=== PATIENT | male | born 1970 | race Caucasian/White ===

== ENCOUNTER 2020-06-03 05:22 | Emergency (ER) | payer OTHER, SELFPAY ==
[2020-06-03 05:46] VITALS: PULSE 82; RESP 15; TEMP 37; O2SAT 97; BMI 20.2
[2020-06-03 05:56] VITALS: BP 140/84; PULSE 82; RESP 15; TEMP 37; O2SAT 97
--- NOTE | 2020-06-03 06:12 | ED_ITS ---
HPI - General Adult General Chief complaint: General Medical Stated complaint: TICK BITE Time Seen by Provider: 06/03/20 06:12 Source: patient Mode of arrival: ambulatory Limitations: no limitations History of Present Illness HPI narrative: 50-year-old male who reports tick to the right upper back for 3 days and the inability to completely remove it. Otherwise denies any fevers, chills, muscle or joint aches. Related Data Home Medications Medication Instructions Recorded Confirmed omeprazole 20 mg PO DAILY 06/03/20 06/03/20 Previous Rx's Medication Instructions Recorded doxycycline hyclate 100 mg PO BID 21 Days #42 tab 06/03/20 omeprazole 40 mg PO DAILY 30 Days #30 cap 06/03/20 Allergies Allergy/AdvReac Type Severity Reaction Status Date / Time No Known Allergies Allergy Verified 06/03/20 06:22 Review of Systems Review of Systems: Pertinent positives and negatives as stated in HPI 10 point review of systems is otherwise negative PMFSH Past Medical History Source: nursing notes reviewed Medical History ADHD Gastroesophageal reflux disease Heart murmur Herniated disc Rheumatoid arthritis Social History Social History Smoking Status: Current every day smoker Use of substances other than those prescribed or required for medical reasons: Yes Substance Use Type: Marijuana Advance Directives: No Physical Exam Vital Signs: Vital Signs: Vital Signs Temp Pulse Resp BP Pulse Ox 06/03/20 05:56 98.6 F 82 15 140/84 H 97 06/03/20 05:46 98.6 F 82 15 97 Body Mass Index 20.2 VITAL SIGNS: Reviewed. GENERAL: Well developed, well nourished, in no acute distress. HEAD: Normocephalic/atraumatic, EYES: PERRLA, EOMI intact without pain, no nystagmus/pallor/icterus noted EARS: Ext canals without abnormality, TMs non-bulging and non-erythematous NOSE: Nares patent bilateral OROPHARYNX: no oral lesions noted, posterior pharynx clear and non-erythematous without noted tonsillar enlargement/erythema/exudates NECK: Supple, no adenopathy LUNGS: Normal breath sounds. No adventitious sounds or accessory muscle use. SpO2<97> CARDIOVASCULAR: Regular rate and rhythm without noted murmurs, no JVD or lower extremity edema. ABDOMEN: Soft, non-tender, non-distended with bowel sounds. No rigidity. No guarding. No palpable masses or hernias noted MUSCULOSKELETAL: No tenderness, deformities, or effusions noted on gross inspection. BACK: area consistent with tick imbedded and the upper right lateral back with surrounding induration and erythema but no fluctuance. EXTREMITIES: No cyanosis, clubbing or edema. SKIN: Inspection of the skin reveals no rashes, ulcerations, jaundice, pallor, or petechiae. NEUROLOGIC: Alert and oriented x 4. Strength and sensation to light touch were grossly intact x 4. Course Course Course Narrative: This is a 50-year-old male with history and clinical presentation consistent with tick bite and still imbedded in the skin and was successfully removed at bedside and will be discharged on a course of dox ycycline. Discharge Plan Discharge Clinical Impression: Tick bite Qualifiers: Encounter type: initial encounter Qualified Code(s): W57.XXXA - Bitten or stung by nonvenomous insect and other nonvenomous arthropods, initial encounter Patient Disposition: Home, Self-Care Prescriptions: New doxycycline hyclate 100 mg tablet 100 mg PO BID 21 Days Qty: 42 RF: 0 omeprazole 40 mg capsule,delayed release(DR/EC) 40 mg PO DAILY 30 Days Qty: 30 RF: 0 No Action omeprazole 20 mg Capsule,Delayed Release(Dr/Ec) 20 mg PO DAILY RF: 0 Referrals: Physician,Unknown [Primary Care Provider] - 2 days
== END 2020-06-03 06:47 | disposition home or self-care (01) ==
PROVIDERS: Emergency Provider Student in an Organized Health Care Education/Training Program
DX: S20.461A Insect bite (nonvenomous) of right back wall of thorax, initial encounter (principal); X58.XXXA Exposure to other specified factors, initial encounter; Y93.9 Activity, unspecified; Y92.9 Unspecified place or not applicable; Y99.9 Unspecified external cause status; F17.200 Nicotine dependence, unspecified, uncomplicated; F12.90 Cannabis use, unspecified, uncomplicated
CPT/HCPCS: 99283; 99284

== ENCOUNTER 2022-05-18 16:15 | Emergency (ER) | payer OTHER, SELFPAY | END 2022-05-18 20:43 | disposition left against medical advice (07) | PROVIDERS: Emergency Provider Emergency Medicine | DX: Z04.1 Encounter for examination and observation following transport accident (principal) ==

== ENCOUNTER 2022-05-23 11:50 | Emergency (ER) | payer OTHER, SELFPAY ==
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
[2022-05-23 12:05] VITALS: BP 169/94; PULSE 65; RESP 16; TEMP 36.1; O2SAT 97; BMI 22.3
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
[2022-05-23] MEDS: Lidocaine 4 % Patch ADH..PATCH 1 PATCH TRANSDERMA (13:42)
[2022-05-23] MEDS: oxyCODONE HCl Immed Release 5 MG TABLET PO (13:42)
[2022-05-23] MEDS: Ketorolac Tromethamine 30 MG/ML VIAL IM (13:42)
[2022-05-23 14:24] LABS: Basophils Absolute Auto 0.1 X10*3/uL (0.0-0.2); Basophils Percent Auto 1.3 % (0-2); Eosinophils Absolute Auto 0.2 X10*3/uL (0.0-0.4); Eosinophils Percent Auto 2.5 % (0-4); Hemoglobin 16.6 g/dl (14.0-18.0); Imm Gran Abs Auto 0.03 X10*3/uL (0.00-0.03); Imm Gran Pct Auto 0.3 % (0.0-0.4); Lymphocytes Absolute Auto 1.9 X10*3/uL (1.2-4.9); Lymphocytes Percent Auto 21.5 % (20-40); MANUAL DIFF FLAG SCAN; Mean Corpuscular HGB Conc 33.9 g/dl (31.0-36.0); Mean Corpuscular Hemoglobin 34.1 pg (27.0-33.0); Mean Corpuscular Volume 100.6 fL (80.0-98.0); Mean Platelet Volume 13.3 fL (9.4-12.4); Monocytes Absolute Auto 0.9 X10*3/uL (0.1-1.2); Monocytes Percent Auto 10.4 % (2-11); Neutrophils Absolute Auto 5.5 x10*3/uL (2.0-8.3); PLT CLUMP 1; Red Blood Count 4.87 X10*6/uL (4.60-5.80); Red Cell Distribution Width 12.9 % (11.0-16.0); SCAN SMEAR FLAG 1
[2022-05-23 14:45] LABS: Alanine Aminotransferase 24 U/L (0-40); Albumin Level 4.4 g/dL (3.5-5.0); Alkaline Phosphatase 67 U/L (39-117); Anion Gap 18 (12-20); Aspartate Amino Transferase 34 U/L (5-37); Bilirubin Direct 0.3 mg/dL (0.0-0.5); Bilirubin Total 0.7 mg/dL (0.0-1.0); Blood Urea Nitrogen 9 mg/dL (9-16); Calcium 9.3 mg/dL (8.4-10.2); Carbon Dioxide 26 mmol/L (22-29); Chloride 102 mmol/L (96-108); Creatinine Clr Calc Pharmacy 91.2; Estimated Glomerular Filt Rate > 60; Glucose Random 93 mg/dL (60-115); Magnesium 2.3 mg/dL (1.6-2.6); Potassium 5.1 mmol/L (3.3-5.1); Sodium 141 mmol/L (135-145); Total Protein 7.1 g/dL (6.5-8.0)
[2022-05-23 14:51] LABS: White Blood Count 8.7 X10*3/uL (4.8-10.8)
[2022-05-23 14:52] LABS: SLIDE REVIEW VERIFIED
[2022-05-23] MEDS: iohexoL 350 MG/ML 75 ML INFUS..BTL 85 ML IV (15:06)
== END 2022-05-23 16:44 | disposition home or self-care (01) ==
PROVIDERS: Physician Assistant; Emergency Provider Emergency Medicine
DX: S22.31XA Fracture of one rib, right side, initial encounter for closed fracture (principal); M54.6 Pain in thoracic spine; R10.2 Pelvic and perineal pain; R07.81 Pleurodynia; V23.41XA Electric (assisted) bicycle driver injured in collision with car, pick-up truck or van in traffic accident, initial encounter; Y93.9 Activity, unspecified; Y92.410 Unspecified street and highway as the place of occurrence of the external cause; Y99.9 Unspecified external cause status; Z79.899 Other long term (current) drug therapy
CPT/HCPCS: 36415; 71101; 71260; 74177; 80048; 80076; 83735; 85025; 96372; 99284; J1885; Q9967

== ENCOUNTER 2024-08-26 08:56 | Emergency (ER) | payer OTHER, SELFPAY ==
--- NOTE | ~2024-08-26 | XR_ITS ---
EXAMINATION: XR ANKLE, LEFT XR FOOT, LEFT CLINICAL INFORMATION: injury , pain COMPARISON: None available. TECHNIQUE: AP, lateral, and mortise views of the left ankle. FINDINGS: On the lateral projection, there is a vertically oriented, likely comminuted mid calcaneal fracture, with increase of Boehler's angle. This appears extend into the posterior facet of the subtalar joints. No additional fractures identified. The ankle is intact, with intact mortise and normal talar dome. The forefoot and midfoot appear normal and intact. There is soft tissue swelling of the heel. XR/XR foot LT 2V IMPRESSION: Comminuted mildly depressed calcaneal fracture. Electronically signed by: Maldonado Robins MD 08/26/2024 09:49 AM [facility]
--- NOTE | ~2024-08-26 | XR_ITS ---
EXAMINATION: XR ANKLE, LEFT XR FOOT, LEFT CLINICAL INFORMATION: injury , pain COMPARISON: None available. TECHNIQUE: AP, lateral, and mortise views of the left ankle. FINDINGS: On the lateral projection, there is a vertically oriented, likely comminuted mid calcaneal fracture, with increase of Boehler's angle. This appears extend into the posterior facet of the subtalar joints. No additional fractures identified. The ankle is intact, with intact mortise and normal talar dome. The forefoot and midfoot appear normal and intact. There is soft tissue swelling of the heel. XR/XR ankle LT 2V IMPRESSION: Comminuted mildly depressed calcaneal fracture. Electronically signed by: Maldonado Robins MD 08/26/2024 09:49 AM [facility]
--- NOTE | ~2024-08-26 | CT_ITS ---
EXAMINATION: CT LUMBAR SPINE WITHOUT CONTRAST CLINICAL INFORMATION: Calcaneal fracture, back pain, rule out fracture. COMPARISON: None available. TECHNIQUE: This CT examination was performed using dose optimization techniques as appropriate, variously including the following: *Automated exposure control *Adjustment of mA and/or kV according to patient size (this includes techniques or standardized protocols for targeted exams where dose is matched to indication/reason for exam; i.e. extremities or head) *Use of iterative reconstruction technique FINDINGS: There is a minimal levoconvex scoliosis. There is a normal lumbar lordosis. There is no fracture, compression deformity, or suspicious focal bone lesion. There is no pars defect or evidence of spondylolysis. There is no evidence of traumatic subluxation. There is minimal degenerative retrolisthesis L3 on L4. Severe degenerative disc disease L5-S1 with disc vacuum phenomenon and spurring. Mild associated facet arthropathy at this level. There is mild disc degeneration at the other levels, left lateral flowing disc osteophytes at L1-L4. Normal facet alignment. There is no evidence of central canal stenosis or large disc herniation. There are disc bulges present at L3-4, L4-5, and L5-S1, poorly characterized on CT. There is moderate to severe neural foraminal stenosis present on the left at L4-5 and L5-S1, and on the right at L5-S1. Moderate right neural foraminal stenosis at L4-5. The imaged sacrum is intact as are the imaged SI joints. Imaged soft tissues demonstrate moderate calcification of the aorta and iliac vessels without aneurysm. No paraspinal or paravertebral soft tissue abnormalities. CT/CT lumbar spine wo IV con IMPRESSION: 1. There is no acute lumbar spine fracture or traumatic malalignment. 2. There is no evidence of spondylolysis. 3. There are lwwj-on-oqushlhe degenerative changes as discussed without evidence of significant canal stenosis. There is significant neural foraminal stenosis at L4-5 and L5-S1 as above. Electronically signed by: Maldonado Robins MD 08/26/2024 12:35 PM [facility] [place]
--- NOTE | ~2024-08-26 | CT_ITS ---
EXAMINATION: CT LEFT FOOT WITHOUT CONTRAST CLINICAL INFORMATION: Calcaneal fracture. Pain. COMPARISON: Plain films of the left foot earlier same day. TECHNIQUE: Spiral CT examination of the left foot was performed in axial plane without IV contrast. Sagittal, coronal, and thin section axial reformatted images were constructed from the axial data set. This CT examination was performed using dose optimization techniques as appropriate, variously including the following: *Automated exposure control *Adjustment of mA and/or kV according to patient size (this includes techniques or standardized protocols for targeted exams where dose is matched to indication/reason for exam; i.e. extremities or head) *Use of iterative reconstruction technique FINDINGS: There is redemonstration of a heavily comminuted calcaneus fracture, with flattening of the calcaneus, and fracture lines extending into both the middle and posterior subtalar facets. Significant articular step off of the posterior facet. No step-off involving the middle facet. Boehler's angle is significantly increased. Fracture lines involve the sustentaculum kurtis. Fracture line extends into the calcaneocuboid joint. No articular step-off. Posteriorly, fracture line extends into the Achilles enthesis. The talus and talar dome, as well as anterior process of the talus are intact. The distal tibia and fibula are intact. The ankle mortise is intact. The remaining tarsal bones including the navicular are intact without fracture. The tarsal metatarsal joints are normally aligned. The Lisfranc interval is normal. Metatarsals and phalanges are intact. No dislocations. Soft tissue swelling and hemorrhage surrounds the calcaneus. CT/CT foot LT wo IV con IMPRESSION: 1. Heavily comminuted calcaneal fracture with fracture lines involving the middle and posterior subtalar facets, anterior calcaneal process, sustentaculum kurtis and extending into the Achilles tendon enthesis. There is flattening of the calcaneus. See above for details. 2. No additional fractures, dislocations, or suspicious bone lesions. 3. Soft tissue swelling and hemorrhage surrounds the fractured calcaneus. Electronically signed by: Maldonado Robins MD 08/26/2024 02:39 PM [facility]
--- NOTE | ~2024-08-26 | XR_ITS ---
EXAMINATION: XR KNEE, LEFT CLINICAL INFORMATION: calcaneous fx, pain COMPARISON: None available. TECHNIQUE: Four views of the left knee. FINDINGS: No acute cortical disruption or malalignment. No lytic or blastic lesions. No suprapatellar bursa joint effusion. Osteopenia versus osteoporosis. XR/XR knee LT 3V IMPRESSION: No acute fracture or dislocation. Electronically signed by: Joselito Stone MD 08/26/2024 12:14 PM [facility]
--- NOTE | ~2024-08-26 | XR_ITS ---
EXAMINATION: XR PELVIS CLINICAL INFORMATION: calcaneous fx, pain COMPARISON: None available. TECHNIQUE: AP view of the pelvis. FINDINGS: No acute cortical disruption or malalignment. Sclerotic irregular articular surface and the superior margin of the acetabula, bilaterally. Asymmetric joint space narrowing involving both coxofemoral joint. Subchondral cyst formation superior right femoral head. Bony pelvis is intact. Spondylosis L5-S1. XR/XR pelvis 1-2V IMPRESSION: Osteoarthrosis, both coxofemoral joints. No acute fracture. Electronically signed by: Joselito Stone MD 08/26/2024 12:13 PM [facility]
[2024-08-26 08:59] VITALS: BP 148/99; PULSE 74; RESP 18; TEMP 36.7; O2SAT 100; BMI 21.6
[2024-08-26] MEDS: Ibuprofen 600 MG TABLET PO (09:04)
--- NOTE | 2024-08-26 09:55 | ED_ITS ---
HPI - General Adult General Chief complaint: Extremity Injury, Lower Stated complaint: ? R Ankle Fx Time Seen by Provider: 08/26/24 09:55 Source: patient Mode of arrival: wheelchair Limitations: no limitations History of Present Illness ED Provider: Brea Tejada PA-C HPI narrative: Patient is a 54 year old assigned male at with a history of tobacco use presenting to the emergency department today with left heel pain. Patient states that he was running and stepped into a hole - injuring his left heel/foot. Patient denies any head strike or loss of consciousness with this incident, dizziness, lightheadedness, abdominal pain, nausea, vomiting, fever, chills, blurry vision, double vision, loss of vision, chest pain, difficulty breathing, shortness of breath, back pain, night sweats, pain with urination, increased urinary frequency, increased urinary urgency, blood in his urine or stool, syncope or a near syncopal episode, bowel incontinence, bladder incontinence, or any other complaints at this time. Severity: moderate Severity scale (1-10): 4 Relieving factors: immobilization Exacerbating factors: movement Associated symptoms: denies other symptoms Treatments prior to arrival: none Related Data Previous Rx's ?Medication ?Instructions ?Recorded doxycycline hyclate 100 mg tablet 100 mg PO BID 21 days #42 tabs 06/03/20 hydrocodone 5 mg-acetaminophen 325 1 tab PO Q6H PRN severe pain 05/23/22 mg tablet (scale score 7-10) #10 tabs ibuprofen 600 mg tablet 600 mg PO Q8H PRN pain #20 tabs 05/23/22 lidocaine 5 % topical patch 1 patch topical DAILY #15 ea 05/23/22 cephalexin 500 mg capsule 500 mg PO BID 7 days #14 caps 02/06/23 tramadol 50 mg tablet 50 mg PO Q8H PRN pain 3 days #9 02/06/23 tabs oxycodone 5 mg tablet 5 mg PO Q8H PRN pain #3 tabs 08/26/24 Allergies Allergy/AdvReac Type Severity Reaction Status Date / Time No Known Allergies Allergy Verified 08/26/24 09:00 Review of Systems Constitutional: Constitutional: Reports no additional constitutional complaints, Denies chills, Denies fever(s) and Denies night sweats Eyes: Eyes: Reports no additional eye complaints, Denies blurry vision, Denies change in vision, Denies diplopia, Denies eye discharge, Denies loss of vision and Denies eye pain ENT: Denies dizziness Cardiovascular: Cardiovascular: Reports no additional cardiovascular complaints, Denies chest pain, Denies lightheadedness, Denies Loss of Consciousness and Denies dyspnea Respiratory: Respiratory: Reports no additional respiratory complaints and Denies dyspnea Gastrointestinal: Gastrointestinal: Reports no additional gastrointestinal complaints, Denies abdominal pain, Denies melena, Denies hematochezia, Denies change in bowel habits and Denies change in stool character Genitourinary: Genitourinary: Reports no additional male genitourinary complaints, Denies hematuria, Denies oliguria, Denies difficulty urinating, Denies dysuria, Denies urinary frequency, Denies urinary hesitancy, Denies urinary incontinence and Denies urinary urgency Musculoskeletal: Musculoskeletal: Reports no additional musculoskeletal complaints, Denies numbness and Denies tingling Comments: left ankle / heel pain Neurologic: Denies dizziness, Denies loss of vision, Denies numbness and Denies tingling Psychiatric: Psychiatric: Reports no additional psychiatric complaints Endocrine: Endocrine: Reports no additional endocrine complaints Hematologic/Lymphatic: Hematologic/Lymphatic: Reports no additional hematologic/lymphatic complaints Allergic/Immunologic: Allergic/Immunologic: Reports no additional allergic/immunologic complaints PMFSH Past Medical History Attestation statement: The following information was validated with the patient. Source: old records reviewed and nursing notes reviewed Medical History Herniated disc Heart murmur ADHD Gastroesophageal reflux disease Rheumatoid arthritis Social History Social History Patient Tobacco Use Status: Current everyday Tobacco user Substance Use Type: Marijuana Advance Directives: No Advance Directives Information Provided: Yes Do you have a plan to hurt others: No Plan Physical Exam ED Vital Signs: Vital Signs - 24 hr 08/26/24 08:59 08/26/24 14:27 Temperature 98.1 F 98.1 F Pulse Rate 74 74 Respiratory Rate 18 18 Blood Pressure 148/99 H 148/99 H Pulse Oximetry 100 100 Oxygen Delivery Method Room Air Room Air BMI result Body Mass Index 21.6 Const General: cooperative, no acute distress, alert and awake Nutritional Appearance: well nourished Orientation/consciousness: patient oriented x3 Limitations: no limitations [facility] Head: Yes normal to inspection and Yes atraumatic Ears: hearing grossly normal bilaterally and external ears normal General nose exam: Normal external nose present, no nasal discharge noted and no epistaxis Face and sinus: Yes normal facial exam, No abrasion and No laceration Mouth: Normal oral and palatal mucosa present, no drooling and no muffled voice Eyes General: appearance normal, both eyes and all related structures Periorbital: periorbital findings normal Eyelids: Yes eyelids normal Conjunctivae: conjunctivae normal Pupils: Equal, round and reactive pupils present EOM: EOMs intact bilaterally Neck Neck: Yes normal visual inspection, Yes full ROM and Yes no lymphadenopathy Chest Chest palpation & inspection: normal inspection of the chest Resp Effort & Inspection: normal respiratory effort and able to speak in complete sentences GI Inspection: Yes normal to inspection Neuro General: patient oriented x3 and moves all extremities Cranial nerves: Yes Equal, round and reactive pupils present Cognition (Neuro): normal cognition Extrem Other: minimal swelling present to the left ankle pain with palpation of the left heel / foot / ankle General: Yes capillary refill normal Psych Appearance: grossly normal Mental Status: mental status grossly normal Affect: normal affect Attitude: cooperative Thought process: Normal thought process present Thought content: Normal thought content present Insight: Good insight present (Psych) Medications Administered Discontinued Medications Generic Name Dose Route Start Last Admin Trade Name Raymundo PRN Reason Stop Dose Admin Ibuprofen 600 mg 08/26/24 09:03 08/26/24 09:04 Ibuprofen 600 Mg Tablet PO 08/26/24 09:04 600 mg ONCE ONE Administration Morphine Sulfate 4 mg 08/26/24 11:26 08/26/24 11:38 Morphine Sulfate 4 Mg/Ml Cartridge IM 08/26/24 11:27 4 mg ONCE ONE Administration Protocol Naloxone HCl 8 mg 08/26/24 13:32 08/26/24 13:47 Naloxone Hcl Nasal Take Home 4 Mg [place] NOSTRILALT 08/26/24 13:33 8 mg ONCE ONE Administration Ondansetron HCl 4 mg 08/26/24 11:26 08/26/24 11:37 Ondansetron Odt 4 Mg Tab.Rapdis TRANSLINGU 08/26/24 11:27 4 mg ONCE ONE Administration Procedures Orthopedic Splinting/Casting Injury #1: Side: left Lower Extremity Immobilizer: posterior splint Other Orthopedic Equipment: crutches Medical Decision Making Medical Decision Making [facility] Narrative: Patient is a 54 year old assigned male at with no reported medical history presenting to the emergency department today with left ankle and heel pain. Patient's physical exam was as noted in the physical exam portion of this note. Patient's left ankle and foot x-rays showed a comminuted and mildly depressed calcaneal fracture. Patient's lumbar CT showed no acute process. Patient's left knee x-ray showed no acute process. Patient's pelvis x-ray showed no acute process. I explained my physical exam findings as well as all test results to the patient. I answered all questions asked by the patient. I spoke to the orthopedic team who requested I obtain a CT scan and discharge the patient appropriately splinted with outpatient follow up. Patient's left heel was placed in a posterior short leg splint with a stirrup - without incident. Patient's PMS was intact prior to and after splint placement. Patient was given crutches with crutch instructions. I stressed the importance of the patient taking his medication as directed (either prescribed or as the over the counter packaging recommends). I stressed the importance of the patient following up with his primary care provider and an orthopedic provider. I stressed the importance of the patient returning to the emergency department immediately if his symptoms were to worsen or if he were to develop any dizziness, shortness of breath, difficulty breathing, chest pain, blurry vision, loss of vision, nausea, vomiting, abdominal pain, fever, chills, back pain, or any other complaints. Patient verbalized agreement and understanding with this treatment plan and discharge. Differential Diagnosis Differential Diagnoses: The differential diagnosis associated with the presentation includes Left calcaneous fracture Admission/Observation Consideration of admission/observation: Escalation of care including admission/observation considered Patient would have been admitted to the hospital had his work up had any findings where hospital admission was appropriate and his clinical presentation warranted hospital admission. Consult Healthcare Provider Management of the patient was discussed with: Field Underwriter (spoke to the orthopedic team as noted in the MDM Rationale portion of this note. ) Independent Interpretation I performed an independent interpretation of an: Plain X-Ray and CT Scan Interpretation: My interpretation is in agreement with the radiologist's impression of these imaging studies. EXAMINATION: XR ANKLE, LEFT XR FOOT, LEFT CLINICAL INFORMATION: injury , pain COMPARISON: None available. TECHNIQUE: AP, lateral, and mortise views of the left ankle. FINDINGS: On the lateral projection, there is a vertically oriented, likely comminuted mid calcaneal fracture, with increase of Boehler's angle. This appears extend into the posterior facet of the subtalar joints. No additional fractures identified. The ankle is intact, with intact mortise and normal talar dome. The forefoot and midfoot appear normal and intact. There is soft tissue swelling of the heel. XR/XR ankle LT 2V IMPRESSION: Comminuted mildly depressed calcaneal fracture. Electronically signed by: Maldonado Robins MD 08/26/2024 09:49 AM EST RP Dictated By: Maldonado Robins MD Signed By: Electronically signed by Maldonado Robins MD 08/26/24 0949 EXAMINATION: XR PELVIS CLINICAL INFORMATION: calcaneous fx, pain COMPARISON: None available. TECHNIQUE: AP view of the pelvis. FINDINGS: No acute cortical disruption or malalignment. Sclerotic irregular articular surface and the superior margin of the acetabula, bilaterally. Asymmetric joint space narrowing involving both coxofemoral joint. Subchondral cyst formation superior right femoral head. Bony pelvis is intact. Spondylosis L5-S1. XR/XR pelvis 1-2V IMPRESSION: Osteoarthrosis, both coxofemoral joints. No acute fracture. Electronically signed by: Joselito Stone MD 08/26/2024 12:13 PM EST RP Dictated By: Joselito Garvey MD Signed By: Electronically signed by Joselito Burk MD 08/26/24 1213 EXAMINATION: XR KNEE, LEFT CLINICAL INFORMATION: calcaneous fx, pain COMPARISON: None available. TECHNIQUE: Four views of the left knee. FINDINGS: No acute cortical disruption or malalignment. No lytic or blastic lesions. No suprapatellar bursa joint effusion. Osteopenia versus osteoporosis. XR/XR knee LT 3V IMPRESSION: No acute fracture or dislocation. Electronically signed by: Joselito Stone MD 08/26/2024 12:14 PM [facility] Dictated By: Joselito Garvey MD Signed By: Electronically signed by Joselito Burk MD 08/26/24 1214 L Report Number: [id number]: Total DLP = 327.00 mGy-cm EXAMINATION: CT LUMBAR SPINE WITHOUT CONTRAST CLINICAL INFORMATION: Calcaneal fracture, back pain, rule out fracture. COMPARISON: None available. TECHNIQUE: This CT examination was performed using dose optimization techniques as appropriate, variously including the following: *Automated exposure control *Adjustment of mA and/or kV according to patient size (this includes techniques or standardized protocols for targeted exams where dose is matched to indication/reason for exam; i.e. extremities or head) *Use of iterative reconstruction technique FINDINGS: There is a minimal levoconvex scoliosis. There is a normal lumbar lordosis. There is no fracture, compression deformity, or suspicious focal bone lesion. There is no pars defect or evidence of spondylolysis. There is no evidence of traumatic subluxation. There is minimal degenerative retrolisthesis L3 on L4. Severe degenerative disc disease L5-S1 with disc vacuum phenomenon and spurring. Mild associated facet arthropathy at this level. There is mild disc degeneration at the other levels, left lateral flowing disc osteophytes at L1-L4. Normal facet alignment. There is no evidence of central canal stenosis or large disc herniation. There are disc bulges present at L3-4, L4-5, and L5-S1, poorly characterized on CT. There is moderate to severe neural foraminal stenosis present on the left at L4- 5 and L5-S1, and on the right at L5-S1. Moderate right neural foraminal stenosis at L4-5. The imaged sacrum is intact as are the imaged SI joints. Imaged soft tissues demonstrate moderate calcification of the aorta and iliac vessels without aneurysm. No paraspinal or paravertebral soft tissue abnormalities. CT/CT lumbar spine wo IV con IMPRESSION: 1. There is no acute lumbar spine fracture or traumatic malalignment. 2. There is no evidence of spondylolysis. 3. There are djht-[id number]-[id number] degenerative changes as discussed without evidence of significant canal stenosis. There is significant neural foraminal stenosis at L4-5 and L5-S1 as above. Electronically signed by: Maldonado Robins MD 08/26/2024 12:35 PM [facility] Dictated By: Maldonado Robins MD Signed By: Electronically signed by Maldonado Robins MD 08/26/24 1235 Report Number: [id number]: Total DLP = 155.00 mGy-cm EXAMINATION: CT LEFT FOOT WITHOUT CONTRAST CLINICAL INFORMATION: Calcaneal fracture. Pain. COMPARISON: Plain films of the left foot earlier same day. TECHNIQUE: Spiral CT examination of the left foot was performed in axial plane without IV contrast. Sagittal, coronal, and thin section axial reformatted images were constructed from the axial data set. This CT examination was performed using dose optimization techniques as appropriate, variously including the following: *Automated exposure control *Adjustment of mA and/or kV according to patient size (this includes techniques or standardized protocols for targeted exams where dose is matched to indication/reason for exam; i.e. extremities or head) *Use of iterative reconstruction technique FINDINGS: There is redemonstration of a heavily comminuted calcaneus fracture, with flattening of the calcaneus, and fracture lines extending into both the middle and posterior subtalar facets. Significant articular step off of the posterior facet. No step-off involving the middle facet. Boehler's angle is significantly increased. Fracture lines involve the sustentaculum kurtis. Fracture line extends into the calcaneocuboid joint. No articular step-off. Posteriorly, fracture line extends into the Achilles enthesis. The talus and talar dome, as well as anterior process of the talus are intact. The distal tibia and fibula are intact. The ankle mortise is intact. The remaining tarsal bones including the navicular are intact without fracture. The tarsal metatarsal joints are normally aligned. The Lisfranc interval is normal. Metatarsals and phalanges are intact. No dislocations. Soft tissue swelling and hemorrhage surrounds the calcaneus. CT/CT foot LT wo IV con IMPRESSION: 1. Heavily comminuted calcaneal fracture with fracture lines involving the middle and posterior subtalar facets, anterior calcaneal process, sustentaculum kurtis and extending into the Achilles tendon enthesis. There is flattening of the calcaneus. See above for details. 2. No additional fractures, dislocations, or suspicious bone lesions. 3. Soft tissue swelling and hemorrhage surrounds the fractured calcaneus. Electronically signed by: Maldonado Robins MD 08/26/2024 02:39 PM [facility] Dictated By: Maldonado Robins MD Signed By: Electronically signed by Maldonado Robins MD 08/26/24 143 Radiology Impression Discussion of test interpretation with radiology: I have reviewed the radiologist's reading. Discharge Plan Discharge Clinical Impression: Heel fracture Patient Disposition: Home, Self-Care Instructions: Calcaneal Fracture (ED) Additional Instructions: DO NOT BEAR ANY WEIGHT ON YOUR LEFT LOWER EXTREMITY. Whenever you are stationary, the left lower leg should be elevated. Take your medication as prescribed. If your left toes begin to have any numbness, tingling, change in color, or change in sensation - you may loosen the outer SHAYE wraps. If you find yourself loosening the SHAYE wraps to the point you're seeing the white portion of the splint - STOP and return to the ER immediately. Follow up with your primary care provider and an orthopedic provider. Return to the emergency department immediately if your symptoms worsen or if you develop any dizziness, shortness of breath, difficulty breathing, chest pain, blurry vision, loss of vision, nausea, vomiting, abdominal pain, fever, chills, back pain, or any other complaints. Prescriptions: New oxycodone 5 mg tablet 5 mg PO Q8H PRN (Reason: pain) Qty: 3 0RF Rx Instructions: Partial Fill upon patient request. No Action doxycycline hyclate 100 mg tablet 100 mg PO BID 21 Days Qty: 42 0RF ibuprofen 600 mg tablet 600 mg PO Q8H PRN (Reason: pain) Qty: 20 0RF lidocaine 5 % adhesive patch,medicated 1 patch topical DAILY Qty: 15 0RF Rx Instructions: leave on most painful area for up to 12 hrs hydrocodone-acetaminophen 5-325 mg tablet 1 tab PO Q6H PRN (Reason: severe pain (scale score 7-10)) Qty: 10 0RF Rx Instructions: Partial Fill upon patient request. cephalexin 500 mg capsule 500 mg PO BID 7 Days Qty: 14 0RF tramadol 50 mg tablet 50 mg PO Q8H PRN (Reason: pain) 3 Days Qty: 9 0RF Referrals: [facility] [place] [facility] [Provider Group] (Call to establish and follow up with an orthopedic provider.) Florentin Soto III, MD [Primary Care Provider] - Interventions: ED Discharge Assessment Last Done: 08/26/24 14:27 Discharge Date/Time: 08/26/24 14:27 Print Language: Uzbek
[2024-08-26] MEDS: Ondansetron ODT 4 MG TAB.RAPDIS TRANSLINGU (11:37)
[2024-08-26] MEDS: Morphine Sulfate 4 MG/ML CARTRIDGE IM (11:38)
[2024-08-26] MEDS: Naloxone HCl Nasal TAKE HOME 4 MG SPRAY 8 MG NOSTRILALT (13:47)
[2024-08-26 14:27] VITALS: BP 148/99; PULSE 74; RESP 18; TEMP 36.7; O2SAT 100
== END 2024-08-26 14:27 | disposition home or self-care (01) ==
PROVIDERS: Emergency Provider Student in an Organized Health Care Education/Training Program; PCP Internal Medicine
DX: S92.002A Unspecified fracture of left calcaneus, initial encounter for closed fracture (principal); M54.50 Low back pain, unspecified; M79.672 Pain in left foot; M25.562 Pain in left knee; R10.2 Pelvic and perineal pain; M79.605 Pain in left leg; X58.XXXA Exposure to other specified factors, initial encounter; Y93.02 Activity, running; Y93.89 Activity, other specified; Y92.89 Other specified places as the place of occurrence of the external cause; Y99.8 Other external cause status; Z87.891 Personal history of nicotine dependence
CPT/HCPCS: 72131; 72170; 73562; 73600; 73620; 73700; 96372; 99283; 99284; J2270

== ENCOUNTER 2024-08-28 10:29 | Outpatient (AMB) | payer OTHER, SELFPAY ==
--- NOTE | 2024-08-28 10:31 | MHC.OFFVIS ---
Vital Signs 08/28/24 10:43 Height 5 ft 11 in Weight 155 lb BMI 21.6 Intake Visit Reasons: FC-Right ankle FC-DOI 08/26/24 Intake Note: German is a 54 year old male who presents today for an evaluation of right calcaneal fx, DOI 08/26/24. Patient reports that he stepped in a hole and pulled his foot out causing him to fall on his face. He presented to [facility] where x-rays and CT were obtained, he was placed in a splint. Currently he has constant shooting pain that radiates from the bottom of heel to his achilles. As well as pain at the lateral aspect of foot. Numbness and tingling in his foot. States his pain is intolerable and makes it difficult to sleep. Finds no relief with Advil or Tylenol. Allergies No Known Allergies Allergy (Verified 08/28/24 10:37) Medication List - Last Reconciled 08/28/24 by Ileana Kessler PA-C No Known Home Meds HPI HPI FC-Right ankle FC-DOI 08/26/24: Details: 54-year-old gentleman presents to the office today for an injury he sustained to his left calcaneus on 08/26/2024. He states that he stepped in a hole and fell. He was seen in the emergency department where x-rays and a CT scan was performed which showed a comminuted fracture through the body of the calcaneus. He was placed in a splint and referred to our office for ortho eval. [facility], [facility] Medical History Herniated disc Heart murmur ADHD Gastroesophageal reflux disease Rheumatoid arthritis Social History (Updated 08/28/24 @ 10:38 by Aspen Platt Dianne) Patient Tobacco Use Status: Current everyday Tobacco user Substance Use Type: Marijuana Current occupational status: unemployed Review of Systems Const All systems reviewed & are unremarkable except as noted in HPI and below Physical Exam Vital Signs: BMI result Body Mass Index 21.6 Const General: cooperative and no acute distress Orientation/consciousness: patient oriented x3 Resp Effort & Inspection: normal respiratory effort and able to speak in complete sentences Cardio Peripheral pulses: Peripheral pulses 2+ throughout Neuro General: patient oriented x3 Extrem Other: Left foot normal to inspection with diffuse swelling. Neurovascularly intact. Office Procedures AMB Fracture Care Fracture Billing Code: Fracture Billing Code Casting/Splints 27204-Czfua Leg Cast Application Procedure code (CPT) selection complete Results Reviewed Results Reviewed: CT foot LT wo IV con IMPRESSION: 1. Heavily comminuted calcaneal fracture with fracture lines involving the middle and posterior subtalar facets, anterior calcaneal process, sustentaculum kurtis and extending into the Achilles tendon enthesis. There is flattening of the calcaneus. See above for details. 2. No additional fractures, dislocations, or suspicious bone lesions. 3. Soft tissue swelling and hemorrhage surrounds the fractured calcaneus. XR ankle LT 2V IMPRESSION: Comminuted mildly depressed calcaneal fracture. Assessment & Plan Assessment & Plan (1) Traumatic closed fracture of left calcaneus with minimal displacement: Code(s): S92.002A - Unspecified fracture of left calcaneus, initial encounter for closed fracture Category: Medical Qualifiers: Encounter type: initial encounter Qualified Code(s): S92.002A - Unspecified fracture of left calcaneus, initial encounter for closed fracture Plan: I explained the extent of the injury to the patient today at this time treat this conservatively with a cast nonweightbearing I explained to the patient with a history of smoking this significantly impacts the bony healing process. This would also make him high risk for surgical candidate with poor bone healing and wound complications. He was placed in a short-leg cast today he will remain nonweightbearing for at least 3 months. I did educate him on smoking cessation. He does not have a primary care doctor and is interested in finding a PCP, I recommended two [address]. He will see me back in 6 weeks with cast off and x-rays sooner if needed. Coding Level of Care Code New Pt Level 4 (98801) Complex EM visit Add On G2211 Diagnoses Closed traumatic minimally displaced fracture of left calcaneus, initial encounter S92.002A Encounter type: initial encounter CPT Codes Fracture Care - Fracture Billing Code: Fracture Billing Code ([id number]) Casting - CPT: 17323-Ihwlm Leg Cast Application ([id number])
[2024-08-28 10:43] VITALS: BMI 21.6
== END 2024-08-28 11:01 | disposition home or self-care (01) ==
PROVIDERS: PCP Internal Medicine; Visit Provider Physician Assistant
DX: S92.002A Unspecified fracture of left calcaneus, initial encounter for closed fracture (principal)
CPT/HCPCS: 28400; 99203; G2211

== ENCOUNTER → 2024-08-28 10:29 | Outpatient (BNVA) | payer OTHER, SELFPAY | PROVIDERS: PCP Internal Medicine; Visit Provider Physician Assistant | DX: S92.002A Unspecified fracture of left calcaneus, initial encounter for closed fracture (principal) | CPT/HCPCS: 28400; 99202 ==

== ENCOUNTER 2024-10-02 08:48 | Outpatient (AMB) | payer OTHER, SELFPAY ==
--- NOTE | 2024-10-02 09:15 | A.OFFVIS_ITS ---
Intake Visit Reasons: OV- Cast change, Right ankle fx DOI 08/26/24 Intake Note: German is a 54 year old male who presents today for a cast change s/p Left Calcaneus Fracture 08/26/24. Patient rpeorts that he has had increased pain at the front of the ankle and his cast has broken. 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 He does not want to go into another cast. Allergies No Known Allergies Allergy (Verified 08/28/24 10:37) HPI HPI OV- Cast change, Right ankle fx DOI 08/26/24: Details: Mr. Felder is a 54-year-old male who presents today for a cast change s/p left calcaneal fracture that he sustained on 08/26/24. Patient reports that he has had increased pain at the front of the ankle and his cast has broken. 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 And admits to weight-bearing on the right lower extremity. Additionally, the patient is a smoker of tobacco and marijuana. [facility] Medical History Herniated disc Heart murmur ADHD Gastroesophageal reflux disease Rheumatoid arthritis Social History (Updated 08/28/24 @ 10:38 by Aspen Platt [facility]) Patient Tobacco Use Status: Current everyday Tobacco user Substance Use Type: Marijuana Current occupational status: unemployed Review of Systems Const All systems reviewed & are unremarkable except as noted in HPI and below Physical Exam Const General: cooperative and no acute distress Orientation/consciousness: patient oriented x3 Resp Effort & Inspection: normal respiratory effort and able to speak in complete sentences Cardio Peripheral pulses: Peripheral pulses 2+ throughout Neuro General: patient oriented x3 Extrem Other: Left foot normal to inspection with diffuse swelling. Neurovascularly intact. Office Procedures Casting/Splints 57198-Nxkvj Leg Cast Application Procedure code (CPT) selection complete Assessment & Plan Assessment & Plan (1) Traumatic closed fracture of left calcaneus with minimal displacement: Code(s): S92.002A - Unspecified fracture of left calcaneus, initial encounter for closed fracture Category: Medical Qualifiers: Encounter type: initial encounter Qualified Code(s): S92.002A - Unspecified fracture of left calcaneus, initial encounter for closed fracture Plan Mr. Felder is a 54-year-old male who presents today for a cast change s/p left calcaneal fracture that he sustained on 08/26/24. Patient reports that he has had increased pain at the front of the ankle and his cast has broken. 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 And admits to weight-bearing on the right lower extremity. Additionally, the patient is a smoker of tobacco and marijuana. While in the office today, the patient was re-educated on the importance of nonweightbearing on the left lower extremity to allow for healing. We also discussed smoking cessation. Patient was placed back into a custom molded short-leg cast. Patient was educated on cast maintenance and instructed to keep the cast clean, dry, and intact. However, should the cast become wet, dirty, damaged, or there are any concerns please call the office immediately for a cast change. Patient will follow up at his normally scheduled follow up appointment, sooner if needed. Patient did request a refill of tramadol which was sent to the patient's pharmacy. Medications: Refilled tramadol 50 mg PO BEDTIME 7 tabs 0RF 7 days Coding Level of Care Code Global (91085) Diagnoses Closed traumatic minimally displaced fracture of left calcaneus, initial encounter S92.002A Encounter type: initial encounter CPT Codes Casting - CPT: 24983-Pycsi Leg Cast Application ([id number])
== END 2024-10-02 10:41 | disposition home or self-care (01) ==
PROVIDERS: PCP Internal Medicine; Visit Provider Physician Assistant
DX: S92.002A Unspecified fracture of left calcaneus, initial encounter for closed fracture (principal)
CPT/HCPCS: 29405; 99024

== ENCOUNTER → 2024-10-02 08:50 | Outpatient (BNV) | payer OTHER, SELFPAY | PROVIDERS: Visit Provider Radiology Diagnostic Radiology | DX: R60.0 Localized edema (principal) | CPT/HCPCS: 73610 ==

== ENCOUNTER 2024-10-02 11:02 | Outpatient (REF) | payer OTHER, SELFPAY ==
--- NOTE | ~2024-10-02 | XR_ITS ---
EXAMINATION: XR ANKLE, LEFT CLINICAL INFORMATION: M25.579 - Pain in unspecified ankle and joints of unspecified foot COMPARISON: August 26, 2024. TECHNIQUE: AP, lateral, and mortise views of the left ankle. FINDINGS: Comminuted fracture left calcaneus. Edema pattern, bimalleolar. The distal tibia and fibula are intact. The talus appears intact. Preservation of normal joint space, tibiotalus and fibula tarsal. XR/XR ankle LT min 3V IMPRESSION: No gross healing of the comminuted fracture, left calcaneus. Edema pattern, bimalleolar. Electronically signed by: Joselito Stone MD 10/02/2024 10:34 AM [facility]
== END 2024-10-02 11:03 | disposition home or self-care (01) ==
LOC: HO.HOSX 11:02
PROVIDERS: Visit Provider Physician Assistant
DX: M25.572 Pain in left ankle and joints of left foot (principal); S92.002A Unspecified fracture of left calcaneus, initial encounter for closed fracture
CPT/HCPCS: 29405; 73610; 99212

== ENCOUNTER 2024-10-09 07:33 | Outpatient (REF) | payer OTHER, SELFPAY ==
--- NOTE | ~2024-10-09 | XR_ITS ---
EXAMINATION: XR CALCANEUS, LEFT CLINICAL INFORMATION: S92.001A - Unspecified fracture of left calcaneus, initial encounter fo... COMPARISON: Left ankle x-ray dated October 02, 2024. Correlated to CT dated August 26, 2024. TECHNIQUE: Lateral and axial views of the left calcaneus were obtained. FINDINGS: Comminuted fracture deformity in the calcaneus without gross callus formation or periosteal bone reaction. No subcutaneous emphysema. XR/XR calcaneus LT min 2V IMPRESSION: No healing comminuted displaced calcaneus fracture. Electronically signed by: Joselito Stone MD 10/09/2024 11:28 AM [facility]
== END 2024-10-09 07:34 | disposition home or self-care (01) ==
LOC: HO.HOSX 07:33
PROVIDERS: Visit Provider Physician Assistant
DX: S92.001A Unspecified fracture of right calcaneus, initial encounter for closed fracture (principal)
CPT/HCPCS: 29405; 73650; 99212

== ENCOUNTER 2024-10-09 08:43 | Outpatient (AMB) | payer OTHER, SELFPAY ==
--- NOTE | 2024-10-09 08:55 | MHC.OFFVIS ---
Vital Signs 10/09/24 09:16 Height 5 ft 11 in Weight 155 lb BMI 21.6 Intake Visit Reasons: OV Right ankle FC-DOI 08/26/24 Intake Note: German is a 54 year old male who presents today for a follow up of right calcaneal fx, DOI 08/26/24. Cast off and x-rays updated. Patient reports he is doing well. States his pain and swelling has improved. States very little pain located at the lateral aspect of ankle. Allergies No Known Allergies Allergy (Verified 10/09/24 09:15) Medication List - Last Reconciled 10/09/24 by Ileana Kessler PA-C [Kneeling Scooter As directed] tramadol 50 mg PO BEDTIME 7 days HPI HPI OV Right ankle FC-DOI 08/26/24: Details: 54-year-old gentleman returns to the office today 6 weeks follow-up left calcaneus fracture date of injury 08/26/2024. Patient states he has been putting pressure while in his cast. He states he has been working. He is still smoking. [facility] Medical History Herniated disc Heart murmur ADHD Gastroesophageal reflux disease Rheumatoid arthritis Social History (Updated 08/28/24 @ 10:38 by Aspen Platt [facility]) Patient Tobacco Use Status: Current everyday Tobacco user Substance Use Type: Marijuana Current occupational status: unemployed Review of Systems Const All systems reviewed & are unremarkable except as noted in HPI and below Physical Exam Vital Signs: BMI result Body Mass Index 21.6 Extrem Other: Left foot normal to inspection. He does have diffuse swelling with no significant tenderness to palpation. Neurovascularly intact. Office Procedures Casting/Splints 15590-Mpjbg Leg Cast Application Procedure code (CPT) selection complete Results Reviewed Results Reviewed: X-rays of the left calcaneus obtained in the office today and reviewed by me show stable joint with interval healing. Assessment & Plan Assessment & Plan (1) Traumatic closed fracture of left calcaneus with minimal displacement: Code(s): S92.002A - Unspecified fracture of left calcaneus, initial encounter for closed fracture Category: Medical Qualifiers: Encounter type: initial encounter Qualified Code(s): S92.002A - Unspecified fracture of left calcaneus, initial encounter for closed fracture Plan: I explained to the patient we need at least another 6 weeks of immobilization and nonweightbearing to bring us to 3 months. He asked if he could be placed in a boot which I advised against especially since he has been putting some weight on this foot a cast would be more appropriate. I did stress the importance of continued nonweightbearing on the left lower extremity to aid in recovery and well-preserved joint space. He does express understanding but states he needs to work and this requires putting some weight. I did explain that with smoking and applying weight before it is fully healed this could cause displacement of fracture and the joint. He does express understanding and will see me back in 6 weeks with cast off and new x-rays. Coding Level of Care Code Global (71940) Diagnoses Closed traumatic minimally displaced fracture of left calcaneus, initial encounter S92.002A Encounter type: initial encounter CPT Codes Casting - CPT: 54301-Atdru Leg Cast Application ([id number])
[2024-10-09 09:16] VITALS: BMI 21.6
== END 2024-10-09 09:57 | disposition home or self-care (01) ==
PROVIDERS: PCP Internal Medicine; Visit Provider Physician Assistant
DX: S92.002D Unspecified fracture of left calcaneus, subsequent encounter for fracture with routine healing (principal)
CPT/HCPCS: 29405; 99024

== ENCOUNTER → 2024-10-09 08:54 | Outpatient (BNV) | payer OTHER, SELFPAY | PROVIDERS: Visit Provider Radiology Diagnostic Radiology | DX: S92.002A Unspecified fracture of left calcaneus, initial encounter for closed fracture (principal) | CPT/HCPCS: 73650 ==

== ENCOUNTER 2024-10-15 12:30 | Outpatient (AMB) | payer OTHER, SELFPAY ==
--- NOTE | 2024-10-15 13:08 | MHC.OFFVIS ---
Vital Signs 10/15/24 13:09 Height 5 ft 11 in Weight 155 lb BMI 21.6 Intake Visit Reasons: OV - Right ankle FC-DOI 08/26/24, cast change Intake Note: German is a 54 year old male who presents today for a follow up of right calcaneal fx, DOI 08/26/24. Patient reports that he had gotten his cast wet 2 days ago. States his cast is breaking at the bottom of the foot. Allergies No Known Allergies Allergy (Verified 10/15/24 13:09) HPI HPI OV - Right ankle FC-DOI 08/26/24, cast change: Details: 54-year-old gentleman returns to the office today for a cast change left calcaneus fracture. He continues to walk on the cast despite my recommendation of nonweightbearing status. [facility] Medical History Herniated disc Heart murmur ADHD Gastroesophageal reflux disease Rheumatoid arthritis Social History Patient Tobacco Use Status: Current everyday Tobacco user Substance Use Type: Marijuana Current occupational status: unemployed Physical Exam Vital Signs: BMI result Body Mass Index 21.6 Office Procedures Casting/Splints 25550-Whcnd Leg Cast Application Procedure code (CPT) selection complete Assessment & Plan Assessment & Plan (1) Traumatic closed fracture of left calcaneus with minimal displacement: Code(s): S92.002A - Unspecified fracture of left calcaneus, initial encounter for closed fracture Category: Medical Qualifiers: Encounter type: initial encounter Qualified Code(s): S92.002A - Unspecified fracture of left calcaneus, initial encounter for closed fracture Plan: Patient was placed in a short-leg cast and should remain nonweightbearing. I did educate him on the importance of nonweightbearing and smoking cessation to facilitate in proper bone healing. Patient expressed understanding but states it is difficult to remain nonweightbearing. Coding Level of Care Code Global (19811) Diagnoses Closed traumatic minimally displaced fracture of left calcaneus, initial encounter S92.002A Encounter type: initial encounter CPT Codes Casting - CPT: 71615-Dbgct Leg Cast Application ([id number])
[2024-10-15 13:09] VITALS: BMI 21.6
== END 2024-10-15 13:45 | disposition home or self-care (01) ==
PROVIDERS: Visit Provider Physician Assistant
DX: S92.002A Unspecified fracture of left calcaneus, initial encounter for closed fracture (principal)
CPT/HCPCS: 29405; 99024

== ENCOUNTER → 2024-10-15 12:30 | Outpatient (BNVA) | payer OTHER, SELFPAY | PROVIDERS: Visit Provider Physician Assistant | DX: S92.002D Unspecified fracture of left calcaneus, subsequent encounter for fracture with routine healing (principal); X58.XXXD Exposure to other specified factors, subsequent encounter | CPT/HCPCS: 29405; 99212 ==

== ENCOUNTER 2024-11-16 08:38 | Outpatient (REF) | payer OTHER, SELFPAY ==
--- NOTE | ~2024-11-16 | XR_ITS ---
CLINICAL HISTORY: S92.001A - Unspecified fracture of right calcaneus, initial encounter fo... 2 views right calcaneus Comparison: None Findings: Nondisplaced calcaneal fracture involving the posterior tuberosity. Suspect a nondisplaced vertical fracture through the body of the calcaneus thin-section CT would be confirmatory. Subtalar joint intact. Equivocal fracture through the anterior process of the calcaneus. Degenerative changes of the tibiotalar joint. Diffuse soft tissue swelling. No radiopaque foreign body. Normal bone mineralization. Impression: 1. Vertical fracture through the calcaneal tuberosity. Probable nondisplaced fracture involving the body of the calcaneus. Equivocal fracture of the anterior process of the calcaneus. Thin-section CT would be confirmatory. 2. Diffuse soft tissue swelling. Normal bone mineralization. This document has been electronically signed by: Timo Fletcher MD on 11/17/2024 09:41:53
== END 2024-11-16 08:39 | disposition home or self-care (01) ==
LOC: HO.HOSX 08:38
PROVIDERS: Visit Provider Physician Assistant
DX: S92.001A Unspecified fracture of right calcaneus, initial encounter for closed fracture (principal)
CPT/HCPCS: 73650; 99212

== ENCOUNTER 2024-11-16 09:26 | Outpatient (AMB) | payer OTHER, SELFPAY ==
--- NOTE | 2024-11-16 09:49 | A.OFFVIS_ITS ---
Intake Visit Reasons: OV Right ankle FC-DOI 08/26/24 Intake Note: German is a 54 year old male who presents today for a follow up of right calcaneal fx, DOI 08/26/24. Cast off and x-rays updated. Patient reports that he is doing well, states no pain or concerns. Allergies No Known Allergies Allergy (Verified 11/16/24 09:53) Medication List - Last Reconciled 11/16/24 by Ileana Kessler PA-C [Kneeling Scooter As directed] tramadol 50 mg PO BEDTIME 7 days HPI HPI OV Right ankle FC-DOI 08/26/24: Details: 54-year-old gentleman returns to the office today 3 months status post right calcaneus fracture. He was taken out of the cast today and denies pain. No concerns today. [facility] Medical History Herniated disc Heart murmur ADHD Gastroesophageal reflux disease Rheumatoid arthritis Social History Patient Tobacco Use Status: Current everyday Tobacco user Substance Use Type: Marijuana Current occupational status: unemployed Review of Systems Const All systems reviewed & are unremarkable except as noted in HPI and below Physical Exam Extrem Other: Left foot normal to inspection. He does have improved swelling with no significant tenderness to palpation. Neurovascularly intact. Results Reviewed Results Reviewed: X-rays of the left calcaneus obtained in the office today and reviewed by me show stable joint with interval healing. Assessment & Plan Assessment & Plan (1) Traumatic closed fracture of left calcaneus with minimal displacement: Code(s): S92.002A - Unspecified fracture of left calcaneus, initial encounter for closed fracture Category: Medical Qualifiers: Encounter type: initial encounter Qualified Code(s): S92.002A - Unspecified fracture of left calcaneus, initial encounter for closed fracture Plan: Patient was transitioned to a tall boot today. Weightbearing as tolerated. If he experiences any worsening symptoms such as pain or difficulty with ambulation he should contact our office otherwise he will follow up in 8 weeks with x-rays sooner if needed. Orders: Orders XR calcaneus RT min 2V Today S92.001A - Unspecified fracture of right calcaneus, initial encounter for closed fracture Coding Level of Care Code Est Pt Level 3 (85353) Complex EM visit Add On G2211 Diagnoses Closed traumatic minimally displaced fracture of left calcaneus, initial encounter S92.002A Encounter type: initial encounter
== END 2024-11-16 10:13 | disposition home or self-care (01) ==
LOC: HO.HOS 09:26
PROVIDERS: Visit Provider Physician Assistant
DX: S92.002A Unspecified fracture of left calcaneus, initial encounter for closed fracture (principal)
CPT/HCPCS: 99024

== ENCOUNTER → 2024-11-16 09:27 | Outpatient (BNV) | payer OTHER, SELFPAY | PROVIDERS: Visit Provider Radiology Diagnostic Radiology | DX: S92.001A Unspecified fracture of right calcaneus, initial encounter for closed fracture (principal) | CPT/HCPCS: 73650 ==

== ENCOUNTER 2024-12-17 09:34 | Outpatient (AMB) | payer OTHER, SELFPAY ==
--- NOTE | 2024-12-17 09:44 | MHC.OFFVIS ---
Vital Signs 12/17/24 09:47 Height 5 ft 11 in Weight 155 lb BMI 21.6 Intake Visit Reasons: ov- RT calcaneal fx, DOI 08/26/24 Intake Note: German is a 54 year old male who presents today for a follow up of right calcaneal fx, DOI 08/26/24. Patient presents today with concerns of increased of swelling in his ankle. He has ongoing pain at the lateral aspect of ankle and the heel of his foot. He finds relief with elevation. Allergies No Known Allergies Allergy (Verified 12/17/24 09:45) Medication List - Last Reconciled 12/17/24 by Ileana Kessler PA-C [Kneeling Scooter As directed] omeprazole magnesium (Prilosec OTC) 20 mg PO DAILY HPI HPI ov- RT calcaneal fx, DOI 08/26/24: Details: 54-year-old gentleman presents to the office today with complaints of pain and swelling in the left foot. He is status post left calcaneus fracture date of injury 08/26/2024. He was initially casted for 3 months however he did ambulate on the cast and continued working during this timeframe although it was encouraged he avoid this. He is currently in a tall walking boot. He is working. He states he was mowing his lawn this morning. He notices worsening pain and swelling throughout the day which is along the heel and lateral aspect of the ankle. He has not had physical therapy. He denies any new injuries. [facility] Medical History Herniated disc Heart murmur ADHD Gastroesophageal reflux disease Rheumatoid arthritis Social History Patient Tobacco Use Status: Current everyday Tobacco user Substance Use Type: Marijuana Current occupational status: unemployed Review of Systems Const All systems reviewed & are unremarkable except as noted in HPI and below Physical Exam Vital Signs: BMI result Body Mass Index 21.6 Const General: cooperative and no acute distress Orientation/consciousness: patient oriented x3 Resp Effort & Inspection: normal respiratory effort and able to speak in complete sentences Cardio Peripheral pulses: Peripheral pulses 2+ throughout Neuro General: patient oriented x3 Extrem Other: Left foot normal to inspection. He does have improved swelling with no significant tenderness to palpation. Neurovascularly intact. Results Reviewed Results Reviewed: X-rays of the left calcaneus obtained in the office today and reviewed by me show stable joint with interval healing. Assessment & Plan Assessment & Plan (1) Traumatic closed fracture of left calcaneus with minimal displacement: Code(s): S92.002A - Unspecified fracture of left calcaneus, initial encounter for closed fracture Category: Medical Qualifiers: Encounter type: initial encounter Qualified Code(s): S92.002A - Unspecified fracture of left calcaneus, initial encounter for closed fracture Plan: I explained to the patient the symptoms he is experiencing are expected given the amount of activity he is performing on a daily basis. I did remind him his recovery has been somewhat impractical for the type of injury he sustained given I stressed over and over nonweightbearing with a cast and he was noncompliant. I strongly encourage physical therapy to work on motion and strengthening exercises. He was fit for a lace-up ankle brace today to use with the shoe. He was given the contact information for physical therapy to call and make an appointment. He does have follow up on January 11 which she will keep if there is any concerns otherwise he can follow up as needed. Orders: Orders XR calcaneus LT min 2V Today S92.002A - Unspecified fracture of left calcaneus, initial encounter for closed fracture PT Evaluation and Treatment Today S92.002A - Unspecified fracture of left calcaneus, initial encounter for closed fracture Coding Level of Care Code Est Pt Level 3 (61059) Complex EM visit Add On G2211 Diagnoses Closed traumatic minimally displaced fracture of left calcaneus, initial encounter S92.002A Encounter type: initial encounter
[2024-12-17 09:47] VITALS: BMI 21.6
== END 2024-12-17 10:04 | disposition home or self-care (01) ==
LOC: HO.HOS 09:34
PROVIDERS: Visit Provider Physician Assistant
DX: S92.002A Unspecified fracture of left calcaneus, initial encounter for closed fracture (principal)
CPT/HCPCS: 99213; G2211

== ENCOUNTER 2024-12-17 09:40 | Outpatient (REF) | payer OTHER, SELFPAY ==
--- NOTE | ~2024-12-17 | XR_ITS ---
EXAMINATION: XR CALCANEUS 2 VIEWS LEFT HISTORY: S92.002A - Unspecified fracture of left calcaneus, initial encounter for... COMPARISON: Comparison is made with the prior examination dated 11/16/2024. FINDINGS: Two views of the left calcaneus are submitted. The bones are osteopenic. Again seen is a comminuted fracture of the calcaneus. Fracture lines remain visible. No significant callus formation is noted. The joint spaces are preserved. The soft tissues are unremarkable. XR/XR calcaneus LT min 2V IMPRESSION: Osteopenia. Comminuted fracture of the calcaneus without significant change. Electronically signed by: Bebo Pantoja MD 12/17/2024 09:52 AM EDT
== END 2024-12-17 09:41 | disposition home or self-care (01) ==
LOC: HO.HOSX 09:40
PROVIDERS: Visit Provider Physician Assistant
DX: S92.002A Unspecified fracture of left calcaneus, initial encounter for closed fracture (principal); X58.XXXA Exposure to other specified factors, initial encounter; Y93.9 Activity, unspecified; Y92.9 Unspecified place or not applicable; Y99.9 Unspecified external cause status
CPT/HCPCS: 73650; 99212

== ENCOUNTER → 2024-12-17 09:41 | Outpatient (BNV) | payer OTHER, SELFPAY | PROVIDERS: Visit Provider Radiology Diagnostic Radiology | DX: S92.002A Unspecified fracture of left calcaneus, initial encounter for closed fracture (principal) | CPT/HCPCS: 73650 ==

== ENCOUNTER 2025-01-11 08:33 | Outpatient (REF) | payer OTHER, SELFPAY | END 2025-01-11 08:34 | disposition home or self-care (01) | LOC: HO.HOSX 08:33 | PROVIDERS: Visit Provider Physician Assistant | DX: Z13.89 Encounter for screening for other disorder (principal) ==

== ENCOUNTER 2025-01-29 08:48 | Outpatient (REF) | payer OTHER, SELFPAY ==
--- NOTE | ~2025-01-29 | XR_ITS ---
EXAMINATION: XR CALCANEUS, LEFT CLINICAL INFORMATION: S92.002A - Unspecified fracture of left calcaneus, initial encounter for... COMPARISON: December 17, 2024. TECHNIQUE: Lateral and axial views of the left calcaneus were obtained. FINDINGS: Old traumatic deformity with the sclerosis and volume loss, calcaneus. No gross of callus formation. No acute cortical disruption. Degenerative changes in the tibiotarsal and tarsal calcaneus joints. Osteopenia versus osteoporosis. XR/XR calcaneus LT min 2V IMPRESSION: Increased sclerosis along the old traumatic deformity left calcaneus suggesting healing. Electronically signed by: Joselito Stone MD 01/29/2025 09:45 AM EDT
== END 2025-01-29 08:49 | disposition home or self-care (01) ==
LOC: HO.HOSX 08:48
PROVIDERS: Visit Provider Physician Assistant
DX: S92.002A Unspecified fracture of left calcaneus, initial encounter for closed fracture (principal)
CPT/HCPCS: 73650; 99212

== ENCOUNTER 2025-01-29 09:30 | Outpatient (AMB) | payer OTHER, SELFPAY ==
[2025-01-29 09:36] VITALS: BMI 21.6
--- NOTE | 2025-01-29 09:36 | A.OFFVIS_ITS ---
Vital Signs 01/29/25 09:36 Height 5 ft 11 in Weight 155 lb BMI 21.6 Intake Visit Reasons: OV-left calcaneus fx DOI 08/26/24 Intake Note: German is a 54 year old male who presents today for a follow up of his right calcaneal fracture, DOI 08/26/24. Patient reports having an increase of pain and swelling. He has been attending physical therapy and waas informed his ankle sh ould not be that swollen. Allergies No Known Allergies Allergy (Verified 01/29/25 09:45) Medication List - Last Reconciled 01/29/25 by CRYSTAL Montalvo-Radha celecoxib (Celebrex) 200 mg PO BID 30 days [Kneeling Scooter As directed] omeprazole magnesium (Prilosec OTC) 20 mg PO DAILY HPI HPI OV-left calcaneus fx DOI 08/26/24: Details: 54-year-old gentleman returns to the office today for left calcaneus fracture date of injury 08/26/2024. The patient has been working with physical therapy. He is concerned because he continues to have discomfort in the foot and ankle and also swelling that develops around the evening time. He states his physical therapist mentioned this is not normal and he should have this looked at. I did offer him an ultrasound which he was interested in performing however he did not have this done at this time. [facility] Medical History Herniated disc Heart murmur ADHD Gastroesophageal reflux disease Rheumatoid arthritis Social History Patient Tobacco Use Status: Current everyday Tobacco user Substance Use Type: Marijuana Current occupational status: unemployed Review of Systems Const All systems reviewed & are unremarkable except as noted in HPI and below Physical Exam Vital Signs: BMI result Body Mass Index 21.6 Const General: cooperative and no acute distress Orientation/consciousness: patient oriented x3 Resp Effort & Inspection: normal respiratory effort and able to speak in complete sentences Cardio Peripheral pulses: Peripheral pulses 2+ throughout Neuro General: patient oriented x3 Extrem Other: Left ankle is normal to inspection there is no erythema or swelling in the calf or the ankle. The foot has trace swelling but no redness or bruising. He does have tenderness along the Achilles tendon however there is no palpable defect. He is able to plantar flex and dorsiflex with limitations. Neurovascularly intact. Results Reviewed Results Reviewed: X-rays of the left calcaneus obtained in the office today and reviewed by me show stable joint with interval healing. There is evidence of joint collapse. Assessment & Plan Assessment & Plan (1) Traumatic closed fracture of left calcaneus with minimal displacement: Code(s): S92.002A - Unspecified fracture of left calcaneus, initial encounter for closed fracture Category: Medical Qualifiers: Encounter type: initial encounter Qualified Code(s): S92.002A - Unspecified fracture of left calcaneus, initial encounter for closed fracture Plan: I explained to the patient since the date of injury he has not allowed himself to fully recover in the way we recommended. I reminded him he was supposed to be nonweightbearing for 3 months in a cast however he insisted on continuing to work while in the cast and also weight-bearing. I explained to the patient that timeframe when he was supposed to be weight-bearing was a time for his soft tissues to heal and for the joint to heal in a way that would hopefully preserve some of the joint. I explained to the patient residual pain due to bony healing and joint collapse/arthritis is to be expected and could continue indefinitely or at least up to a year. I also explained soft tissue swelling as common and a result to him not allowing this to fully heal as we recommended in the beginning. He did express understanding to all of this. I strongly encouraged him to use a lace-up ankle brace with any type of weight-bearing activity to provide some support. I strongly encouraged him to continue working with physical therapy explaining strengthening the surrounding ankle stabilizing muscles will help to balance out the support. He was given a prescription for Celebrex to help with his discomfort. I explained he can take this twice a day for 2 weeks for flare-ups. He should continue to rest ice and elevate as needed. No further follow-ups warranted at this time unless there is any questions or concerns she can reach out to me. Orders: Orders XR calcaneus LT min 2V Today S92.002A - Unspecified fracture of left calcaneus, initial encounter for closed fracture Medications: New celecoxib (Celebrex) 200 mg PO BID 60 caps 3RF 30 days Coding Level of Care Code Est Pt Level 3 (29566) Complex EM visit Add On G2211 Diagnoses Closed traumatic minimally displaced fracture of left calcaneus, initial encounter S92.002A Encounter type: initial encounter
== END 2025-01-29 11:57 | disposition home or self-care (01) ==
LOC: HO.HOS 09:31
PROVIDERS: Visit Provider Physician Assistant
DX: S92.002A Unspecified fracture of left calcaneus, initial encounter for closed fracture (principal)
CPT/HCPCS: 99213; G2211

== ENCOUNTER → 2025-01-29 09:36 | Outpatient (BNV) | payer OTHER, SELFPAY | PROVIDERS: Visit Provider Radiology Diagnostic Radiology | DX: S92.002A Unspecified fracture of left calcaneus, initial encounter for closed fracture (principal) | CPT/HCPCS: 73650 ==

== ENCOUNTER 2025-02-03 13:00 | Outpatient (RCR) | payer OTHER, SELFPAY ==
--- NOTE | 2025-01-20 13:37 | MHC.PT.EP ---
[facility] [place] Office [place] Office [place] Office [address] Anjel Valderrama [address] [phone] F: [phone] F: [phone] F: [phone] F: [phone] Physical Therapy Plan of Care Date of Evaluation: 01/20/25 Date of Surgery: n/a Diagnosis: traumatic closed fx of L calcaneus Assessment: Patient is a 54 year old male presenting to PT with L calcaneus fx. Pt reports onset of pain began August due to falling off a ladder. He presents today with in pain, ROM, swelling, ankle strength, balance, gait mechanics. Pt's current occupation is none, with baseline physical activities including ambulating, stair negotiation, ADLs, walking. Pt expresses intermediate goal of returning to PLOF, and is motivated to work towards this in PT. Clinical presentation today is most consistent with signs and sx associated with L calcaneus fx and pt will benefit from skilled PT 2 week x 4 weeks to address the following problems and impairments noted upon evaluation: pain, ROM, swelling, ankle strength, balance, gait mechanics. These problems limit the patient with the following functional activities: ambulating, stair negotiation, ADLs, walking. The prescribed treatment plan of care is medically necessary. Co-morbidities of RA were identified and taken into considerations of plan of care. Pt was educated on HEP, role of PT, prognosis, POC. Frequency and Duration: The patient will be seen 2 x week x 4 weeks Short Term Goals: Pt will demonstrate symmetrical L ankle ROM in 2 weeks. Pt will demonstrate L ankle MMT strength at least 4+/5 in 2 weeks. Pt will demonstrate ability to SLS x 10 sec in 2 weeks. 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 Pt will demonstrate ability to ambulate with normal mechanics in 4 weeks for return to PLOF. Pt will demonstrate ability to negotiate stairs with min to no pain in 4 weeks for improved access to his home. Treatment Plan: Modalities to reduce pain, spasms and effusion. Manual therapy to restore motion and function. Therapeutic exercise to improve strength and flexibility. Neuromuscular re-education for posture and balance. Therapeutic activities to return to functional activities of daily living. Electronically signed by: Chyna Das, PT, DPT, ATC Please sign and return to therapist. Thank you for your referral.
--- NOTE | 2025-03-01 06:13 | MHC.PT.DC ---
[facility] [place] Office [place] Office [place] Office [address] Anjel Valderrama 140 [facility] [phone] F: [phone] F: [phone] F: [phone] F: [phone] Physical Therapy Discharge Report Diagnosis: traumatic closed fx of L calcaneus Date of Surgery: n/a Date of Evaluation: 01/20/25 Date of Discharge: 03/01/25 Treatments to Date: 2 Cancellations to Date: 3 No Shows to Date: 0 Discharge Status: Patient Elected to Stop Discharge Summary: Pt presented to PT on a day he didn't have a scheduled appointment stating he feels better. Pt requesting to be d/c. Pt d/c her his request. Electronically signed by: Chyna Das, PT, DPT, ATC Please sign and return to therapist. Thank you for your referral.
== END 2025-03-01 06:14 | disposition home or self-care (01) ==
LOC: HO.PTCHIC 13:00
PROVIDERS: Visit Provider Physician Assistant
DX: S92.002D Unspecified fracture of left calcaneus, subsequent encounter for fracture with routine healing (principal)
CPT/HCPCS: 97110; 97112; 97161

== ENCOUNTER 2025-04-05 07:48 | Emergency (ER) | payer OTHER, SELFPAY ==
--- NOTE | ~2025-04-05 | CT_ITS ---
EXAMINATION: CTA NECK WITH CONTRAST (STROKE) CTA BRAIN WITH CONTRAST (STROKE) CLINICAL INFORMATION: Right hemibody weakness. Recent CT demonstrated a left dense MCA and left MCA territory infarct. COMPARISON: Correlated to recent CT brain dated same day. TECHNIQUE: CTA of the head and neck was performed in the axial plane from the mediastinum to the skull vertex using 70 mL Omnipaque 350 intravenous contrast. Additional reformatted multiplanar images including maximum intensity projection MIP images are generated on the CT workstation. This CT examination was performed using dose optimization techniques as appropriate, variously including the following: *Automated exposure control *Adjustment of mA and/or kV according to patient size (this includes techniques or standardized protocols for targeted exams where dose is matched to indication/reason for exam; i.e. extremities or head) *Use of iterative reconstruction technique DLP: 723 mGy centimeter. FINDINGS: The degree of stenosis determined by criteria similar to NASCET. Chest CTA: No aneurysm or dissection or focal stenosis in the included aortic arch. Neck CTA: Right CCA: Normal patency. No focal stenosis. No intimal flap. Right ICA: Mixed plaques in the proximal segment. Normal patency. Less than 50% stenosis. No intimal flap. Left CCA: Normal patency. No focal stenosis. No intimal flap. Left ICA: Mixed plaque in the proximal segment resulting in complete IV contrast enhancement of the lumen from the origin to the skull base. V1/V2 segments: Normal patency. No focal stenosis. No intimal flap. Codominant vertebral arteries. Brain CTA: Anterior cerebral circulation: ICAs: No IV contrast enhancement in the petrous or the cavernous segment lower terminus on the left ICA. Right ICA demonstrates calcified plaques in the cavernous segment. No focal stenosis. No abrupt cut off. MCA: Right MCA demonstrates normal patency without focal stenosis or abrupt cut off. Left MCA demonstrate intraluminal filling defects and faint enhancement. ACAs: Normal patency. No focal stenosis. No abrupt cut off. Anterior communicating artery appears patent. Posterior communicating artery is patent on the left. Ophthalmic arteries are patent. Posterior cerebral circulation: V3/V4 segments: No focal stenosis. Normal patency. No intimal flap. Posterior inferior cerebellar arteries and anterior inferior cerebral arteries are patent. Basilar artery is patent without focal stenosis or intimal flap. Superior cerebellar arteries are patent. 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 No focal stenosis. No abrupt cut off. Ancillary findings: The main cerebral venous sinuses are patent. Focal hypodensity involving the left basal ganglia/head of the caudate nucleus. CT/CT angio head neck STROKE IMPRESSION: [Occluded left ICA from its origin to the ICA terminus with some reconstitution likely via left posterior communicating artery and anterior communicating arteries. There is likely occlusion of the left Heubner artery. Acute stroke/nonhemorrhagic ischemia left caudate nucleus head and likely posterior left insular and left precentral gyrus. This critical test result is communicated to: Emergency physician Dr. Jackson Bhatt at 8:48 AM on April 05, 2025. Electronically signed by: Joselito Stone MD 04/05/2025 08:50 AM EDT
--- NOTE | ~2025-04-05 | CT_ITS ---
EXAMINATION: CT HEAD WITHOUT CONTRAST (STROKE PROTOCOL) CLINICAL INFORMATION: Right-sided weakness. Concerning stroke. COMPARISON: None available. TECHNIQUE: Contiguous axial imaging was performed from the skull base to vertex without intravenous administration of contrast. This CT examination was performed using dose optimization techniques as appropriate, variously including the following: *Automated exposure control *Adjustment of mA and/or kV according to patient size (this includes techniques or standardized protocols for targeted exams where dose is matched to indication/reason for exam; i.e. extremities or head) *Use of iterative reconstruction technique. DLP: 659 mGy centimeter. FINDINGS: Dense left MCA measuring 57 has folia and its and centimeter from the left M1 to bifurcation/trifurcation region. There is hughes-white matter effacement and hypodensity centered in the posterior left subinsular/external capsule into the left frontal opercular and left precentral gyrus. There is hypodensity in the left lenticular nucleus and probably the left caudate nucleus head. No acute intracranial hemorrhage, mass effect, midline shift, hydrocephalus or herniation. Posterior cranial fossa contents demonstrated no gross mass effect or focal hemorrhage. Sellar/suprasellar region demonstrated no gross masses. There is normal position of the cerebellar tonsils. No F levels in the paranasal sinuses. Tympanic cavities and mastoid cells are aerated. Calcified plaques in the cavernous segments of the ICAs. CT/CT head for STROKE IMPRESSION: Acute nonhemorrhagic stroke, left MCA territory with positive dense left MCA sign concerning for embolus. This critical result was discussed with emergency physician Dr. Jorge Bhatt at at 8:20 AM hours on on April 05, 2025.. It was ascertained that the content and urgency of the report was understood at the time of direct communication. Electronically signed by: Joselito Stone MD 04/05/2025 08:25 AM EDT
[2025-04-05 07:58] VITALS: BP 175/88; PULSE 67; RESP 16; TEMP 36.9; O2SAT 98; BMI 25.4
--- NOTE | 2025-04-05 08:02 | ECG_ITS ---
Test Reason : stroke alert Blood Pressure : */* mmHG Vent. Rate : 52 BPM Atrial Rate : 52 BPM P-R Int : 150 ms QRS Dur : 84 ms QT Int : 434 ms P-R-T Axes : 12 -13 25 degrees QTcB Int : 403 ms Sinus bradycardia Otherwise normal ECG No previous ECGs available Referred By: Jorge Bhatt Electronically Signed By: DIVINA MANN
[2025-04-05 08:08] LABS: Glucose, Whole Blood 92 mg/dL (60-115)
--- NOTE | 2025-04-05 08:13 | ED_ITS ---
HPI - Neuro Symptoms/Deficit General Chief Complaint: Stroke Stated Complaint: quest stroke Time Seen by Provider: 04/05/25 07:55 Source: patient and family (Friend) Mode of arrival: ambulatory Limitations: no limitations History of Present Illness ED Provider: DR. Bhatt HPI Narrative: A 54-year-old male brought in by his friend for evaluation and concern of having stroke. This 54-year-old male seen at 07:45 by his neighbor friend walking unsteadily and unable to speak and express himself friend brought him in for further evaluation concerning of stroke, on arrival patient is quite confused, with obvious expressive aphasia, initial medical screening exam showing right upper extremity pronator drift, patient declined having anything wrong with him claiming that is his baseline, patient is non historian that his friend confirmed that is not his baseline. More history was obtained from the friend that he lives home with his alcoholic girlfriend, patient drinks daily. No known anticoagulation therapy. Related Data Home Medications ?Medication ?Instructions ?Recorded ?Confirmed omeprazole magnesium 20 mg 20 mg PO DAILY 12/17/24 tablet,delayed release (Prilosec OTC) Previous Rx's ?Medication ?Instructions ?Recorded Kneeling Scooter #1 ea 08/28/24 celecoxib 200 mg capsule (Celebrex) 200 mg PO BID 30 d ays #60 caps 01/29/25 Allergies Allergy/AdvReac Type Severity Reaction Status Date / Time No Known Allergies Allergy Verified 04/05/25 08:06 Review of Systems 2 Review of Systems: All other systems are reviewed and are negative Constitutional: Reports as per HPI and Reports no additional constitutional complaints Eyes: Reports as per HPI and Reports no additional eye complaints Reports system reviewed and no additional complaints, except as documented Cardiovascular: Reports as per HPI and Reports no additional cardiovascular complaints Respiratory: Reports as per HPI and Reports no additional respiratory complaints Gastrointestinal: Reports as per HPI and Reports no additional gastrointestinal complaints Genitourinary: Reports no additional female genitourinary complaints Musculoskeletal: Reports no additional musculoskeletal complaints Skin/Breast: Reports system reviewed and no additional complaints, except as docu Psychiatric: Reports no additional psychiatric complaints Endocrine: Reports no additional endocrine complaints Hematologic/Lymphatic: Reports no additional hematologic/lymphatic complaints Allergic/Immunologic: Reports no additional allergic/immunologic complaints Reports system reviewed and no additional complaints, except as documented and Reports Abnormal speech present PMFSH Past Medical History Medical History Herniated disc Heart murmur ADHD Gastroesophageal reflux disease Rheumatoid arthritis Social History Social History Unable to assess alcohol history related to: Unable to respond and Unknown Alcohol intake: current Alcohol intake frequency: 0-2 drinks per day Alcohol type: hard liquor Patient Tobacco Use Status: Current everyday Tobacco user Smoked in Last 30 Days: Yes Use of substances other than those prescribed or required for medical reasons: No Substance Use Type: Marijuana Advance Directives: No Advance Directives Information Provided: No Do you have a plan to hurt others: No Plan Current occupational status: unemployed Physical Exam 2 Vital Signs: Vital Signs: Last Vital Signs Temp 98.5 F 04/05/25 07:58 Pulse 57 04/05/25 09:20 Resp 16 04/05/25 09:20 BP 167/83 H 04/05/25 09:20 Pulse Ox 99 04/05/25 09:20 O2 Del Method Room Air 04/05/25 09:20 BMI result Body Mass Index 25.4 Vital signs have been reviewed and appear to be correct. Blood pressure elevated. Heart rate normal. Respiratory rate normal. Temperature normal. Oxygen saturation normal. Appearance: Alert. Oriented X3. No acute distress. Head: Normal external exam. Normocephalic. Atraumatic. No Celestin signs noted. No raccoon eyes noted Eyes: PERRLA. EOMI. Conjunctiva and sclera normal. Eyelids normal. ENT: TM's Normal. Pharynx normal. Uvula midline. Moist mucous membranes. No trismus noted. No drooling noted. No muffled voice noted. Neck: Normal inspection. Neck supple. FROM. No adenopathy. Thyroid Normal. No meningeal signs. No neck mass noted. CVS: Normal heart rate and rhythm. Heart sound normal. No murmurs noted. Pulses normal throughout. Respiratory: No respiratory distress. Painless inspiration. Breath sounds normal. No wheezes/rales/rhonchi noted. Chest nontender. No accessory muscle usage noted or decreased air movement noted. Abdomen: Soft and nontender. Bowel sounds normal in all 4 quadrants. No distention noted. No organomegaly noted. No visible injury noted. Back: No CVA tenderness. Full range of motion noted. Skin: Skin warm and dry. Normal skin color. Normal skin turgor. No rashes/lesions/lacerations noted. Extremities: No lower extremity edema. Extremities exhibit normal range of motion. Extremities nontender. Neuro: Oriented X 3. Cranial nerve exam: II-XII are grossly intact No motor deficit. No sensory deficit. Reflexes normal. Course Reevaluation(s) Reevaluation #1: Ischemic CVA with GCS of 6 patient is not a candidate for oral thrombolysis (unknown onset of symptoms) case discussed with intervention neurologist at [facility] who accepted the patient to be transferred for possible mechanical thrombectomy. Time: 09:14 Medications Administered Discontinued Medications Generic Name Dose Route Start Last Admin Trade Name Freq PRN Reason Stop Dose Admin Iohexol 100 ml 04/05/25 08:27 04/05/25 08:28 Iohexol 350 Mg/Ml 100 Ml Infus..Btl IV 04/05/25 08:28 70 ml ONCE ONE Administration Medical Decision Making Differential Diagnosis Differential Diagnoses: The differential diagnosis associated with the presentation includes (Hemorrhagic stroke, ischemic stroke, electrolyte derangement, severe anemia, ACS, metabolic disorder.) Admission/Observation Consideration of admission/observation: Escalation of care including admission/observation considered Lab Data MDM Lab Attestation statement: I reviewed the patient's lab results. 04/05/25 08:31 04/05/25 08:31 Labs: Lab Results 04/05/25 04/05/25 Range/Units 07:55 08:31 WBC 8.1 (4.8-10.8) X10*3/uL RBC 4.25 L (4.60-5.80) X10*6/uL Hgb 14.4 (14.0-18.0) g/dl Hct 43.3 (42.0-52.0) % MCV 101.9 H (80.0-98.0) fL MCH 33.9 H (27.0-33.0) pg MCHC 33.3 (31.0-36.0) g/dl RDW 12.9 (11.0-16.0) % Plt Count 144 L (160-400) X10*3/uL MPV 11.7 (9.4-12.4) fL Immature Gran % (Auto) 0.2 (0.0-0.4) % Neut % (Auto) 63.1 (45-73) % Lymph % (Auto) 21.5 (20-40) % [place] % (Auto) 11.2 H (2-11) % Eos % (Auto) 3.0 (0-4) % Baso % (Auto) 1.0 (0-2) % Lymph # (Auto) 1.7 (1.2-4.9) X10*3/uL [place] # (Auto) 0.9 (0.1-1.2) X10*3/uL Eos # (Auto) 0.2 (0.0-0.4) X10*3/uL Baso # (Auto) 0.1 (0.0-0.2) X10*3/uL Abs Immat Gran (auto) 0.02 (0.00-0.03) X10*3/uL Absolute Neuts (auto) 5.1 (2.0-8.3) x10*3/uL Absolute Nucleated RBC 0.000 (0.0-0.012) X10*3/uL Nucleated RBC % (auto) 0.0 (0.0-0.2) /100WBC PT 10.2 L (10.9-12.4) SEC INR 0.9 (0.9-1.1) APTT 35.1 H (26.7-34.1) SEC Sodium 138 (135-145) mmol/L Potassium 4.6 (3.3-5.1) mmol/L Chloride 104 (96-108) mmol/L Carbon Dioxide 26 (22-29) mmol/L Anion Gap 13 (12-20) BUN 16 (9-16) mg/dL Creatinine 0.95 (0.5-1.4) mg/dL Estim Creat Clear Calc 72.7 Estimated GFR > 60 POC Glucose 92 (60-115) mg/dL Random Glucose 83 (60-115) mg/dL Calcium 8.3 L D (8.4-10.2) mg/dL Troponin I High Sens 6.3 (<3.5-35.0) ng/L Triglycerides 69 (<150) mg/dL Cholesterol 155 (<200) mg/dL LDL Cholesterol, Calc 77 (<100) mg/dL HDL Cholesterol 65 (>40) mg/dL Ethyl Alcohol < 10 mg/dL Independent Interpretation I performed an independent interpretation of an: CT Scan (Head/CTA:[Occluded left ICA from its origin to the ICA terminus with some reconstitution likely via left posterior communicating artery and anterior communicating arteries. There is likely occlusion of the left [place] artery. Acute stroke/nonhemorrhagic ischemia left caudate nucleus head and li) Radiology Impression Discussion of test interpretation with radiology: I have reviewed the radiologist's reading. NIH Stroke Scale Time: 08:21 Level of Consciousness: Alert Level of Consciousness Questions: Answers neither question correctly Level of Consciousness Commands: Performs both tasks correctly Best Gaze: Normal Visual: No visual loss Facial Palsy: Normal Motor Arm (Right): Drift Motor Arm (Left): No drift Motor Leg (Right): Drift Motor Leg (Left): No drift Limb Ataxia: Absent Sensory: Normal Best Language: Severe aphasia Dysarthia: Normal Extinction and Inattention: No abnormality Score: 6 Critical Care Time Critical Care Time Critical Care Time: Yes Total Critical Care Time: 40 Attestation: The patient was critically ill with a high probability of imminent or life- threatening deterioration. I spent greater than 30 minutes of discontinuous time evaluating the patient, delivering critical care at the bedside, discussing evaluating data with consultants. Critical care time does not include time spent performing separately billable procedures or teaching. Time spent performing critical care was 40 minutes. Discharge Plan Discharge Clinical Impression: Cerebrovascular accident Patient Disposition: [facility] Transfer Details: To [facility] Emergency Department Prescriptions: No Action (DME) Kneeling Scooter See Rx Instructions .ROUTE .MEDSUPPLY Qty: 1 0RF Rx Instructions: As directed omeprazole magnesium [Prilosec OTC] 20 mg tablet,delayed release (DR/EC) 20 mg PO DAILY celecoxib [Celebrex] 200 mg capsule 200 mg PO BID 30 Days Qty: 60 3RF Print Language: Jamaican
[2025-04-05 08:21] VITALS: BP 170/86; PULSE 65; RESP 13; O2SAT 98
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
[2025-04-05] MEDS: iohexoL 350 MG/ML 100 ML INFUS..BTL IV (08:28)
[2025-04-05 08:36] LABS: MANUAL DIFF FLAG NO
[2025-04-05 08:37] LABS: Hematocrit 43.3 % (42.0-52.0); Hemoglobin 14.4 g/dl (14.0-18.0); Imm Gran Abs Auto 0.02 X10*3/uL (0.00-0.03); Imm Gran Pct Auto 0.2 % (0.0-0.4); Lymphocytes Absolute Auto 1.7 X10*3/uL (1.2-4.9); Mean Corpuscular HGB Conc 33.3 g/dl (31.0-36.0); Mean Corpuscular Hemoglobin 33.9 pg (27.0-33.0); Mean Corpuscular Volume 101.9 fL (80.0-98.0); NRBC Abs Auto 0.000 X10*3/uL (0.0-0.012); NRBC Pct Auto 0.0 /100WBC (0.0-0.2); Platelet Count 144 X10*3/uL (160-400); Red Blood Count 4.25 X10*6/uL (4.60-5.80); White Blood Count 8.1 X10*3/uL (4.8-10.8)
[2025-04-05 08:46] LABS: INTERNATIONAL NORM RATIO 0.9 (0.9-1.1); Prothrombin Time 10.2 SEC (10.9-12.4)
[2025-04-05 08:49] LABS: Partial Thromboplastin Time 35.1 SEC (26.7-34.1)
[2025-04-05 08:52] LABS: Stroke Lab Use COMPLETE
[2025-04-05 08:53] LABS: Anion Gap 13 (12-20); Blood Urea Nitrogen 16 mg/dL (9-16); Calcium 8.3 mg/dL (8.4-10.2); Carbon Dioxide 26 mmol/L (22-29); Chloride 104 mmol/L (96-108); Cholesterol 155 mg/dL (<200); Creatinine Clr Calc Pharmacy 72.7; Estimated Glomerular Filt Rate > 60; HDL Cholesterol 65 mg/dL (>40); Potassium 4.6 mmol/L (3.3-5.1); Sodium 138 mmol/L (135-145); Triglycerides 69 mg/dL (<150)
--- NOTE | 2025-04-05 08:56 | MHC.STROKE ---
CT head reported to Dr. Bhatt CTA report called. L MCA stroke extending from the ICA to the MCA. Call out to [facility] for potential transfer. Called placed [id number]. Images sent. Awaiting call back RN aware EMS transfer agent notified of potential transfer as well.
[2025-04-05 09:00] LABS: Troponin-I High Sensitivity 6.3 ng/L (<3.5-35.0)
--- NOTE | 2025-04-05 09:10 | MHC.EDTECH ---
delay on EKG Do to patient being in CT as well the EKG machine was being used. nurse aware
--- NOTE | 2025-04-05 09:11 | MHC.STROKE ---
Patient was accepted at [facility], Dr. Rivas Pt updated on plan of care EMS here now to transport patient to [facility]
--- NOTE | 2025-04-05 09:14 | MHC.STROKE ---
Friend that brought patient to ED updated on plan with patient's permission.
--- NOTE | 2025-04-05 09:16 | MHC.EDTECH ---
delay on PTINR machine due to patient being in ct nurse aware
[2025-04-05 09:20] VITALS: BP 167/83; PULSE 57; RESP 16; O2SAT 99
[2025-04-05 09:24] VITALS: BP 167/83; PULSE 57; RESP 16; TEMP 36.8; O2SAT 99
[2025-04-05 09:28] LABS: INR Whole Blood 1.1 (0.9-1.1); Prothrombin Time Whole Blood 12.7 sec (11.1-13.5)
--- OUTSIDE RECORDS SUMMARY | 2025-04-05 09:40 | XMS_ITS ---
Author Name [facility] Organization Unknown Care Team Organization Name Specialty Phone Email Start Date End Da te [facility] MILADIS ACEVEDO Primary Care 06/19/2022 4
== END 2025-04-05 09:24 | disposition short-term general hospital (02) ==
PROVIDERS: Emergency Provider Emergency Medicine
DX: I63.9 Cerebral infarction, unspecified (principal); R00.1 Bradycardia, unspecified; R53.1 Weakness; Z79.899 Other long term (current) drug therapy
CPT/HCPCS: 36415; 70450; 70496; 70498; 80048; 80061; 80307; 82947; 84484; 85025; 85610; 85730; 93005; 99285; Q9967

== ENCOUNTER → 2025-04-05 08:02 | Outpatient (BNV) | payer OTHER, SELFPAY | PROVIDERS: Emergency Provider Emergency Medicine; Visit Provider Internal Medicine | DX: R00.1 Bradycardia, unspecified (principal) | CPT/HCPCS: 93010 ==

== ENCOUNTER → 2025-04-05 08:02 | Outpatient (BNV) | payer OTHER, SELFPAY | PROVIDERS: Emergency Provider Emergency Medicine; Visit Provider Radiology Diagnostic Radiology | DX: I65.22 Occlusion and stenosis of left carotid artery (principal); I63.9 Cerebral infarction, unspecified | CPT/HCPCS: 70450; 70496 ==

== ENCOUNTER 2025-04-26 13:00 | Outpatient (AMB) | payer OTHER, SELFPAY ==
[2025-04-26 13:07] VITALS: BP 138/76; PULSE 88; O2SAT 95; BMI 25.1
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
== END 2025-04-26 13:42 | disposition home or self-care (01) ==
LOC: HO.HMCH 13:01
PROVIDERS: Visit Provider Internal Medicine
DX: I63.233 Cerebral infarction due to unspecified occlusion or stenosis of bilateral carotid arteries (principal); S92.002A Unspecified fracture of left calcaneus, initial encounter for closed fracture; I65.29 Occlusion and stenosis of unspecified carotid artery; H40.9 Unspecified glaucoma; F17.200 Nicotine dependence, unspecified, uncomplicated; F32.9 Major depressive disorder, single episode, unspecified; D75.89 Other specified diseases of blood and blood-forming organs; I10 Essential (primary) hypertension; S92.902A Unspecified fracture of left foot, initial encounter for closed fracture; K21.9 Gastro-esophageal reflux disease without esophagitis

== ENCOUNTER → 2025-04-26 13:00 | Outpatient (BNVA) | payer OTHER, SELFPAY | PROVIDERS: Visit Provider Internal Medicine | DX: Z76.89 Persons encountering health services in other specified circumstances (principal); I69.331 Monoplegia of upper limb following cerebral infarction affecting right dominant side; I10 Essential (primary) hypertension; S92.002D Unspecified fracture of left calcaneus, subsequent encounter for fracture with routine healing; I65.29 Occlusion and stenosis of unspecified carotid artery; H40.9 Unspecified glaucoma; F17.200 Nicotine dependence, unspecified, uncomplicated; F32.9 Major depressive disorder, single episode, unspecified; D75.89 Other specified diseases of blood and blood-forming organs; S92.902D Unspecified fracture of left foot, subsequent encounter for fracture with routine healing; K21.9 Gastro-esophageal reflux disease without esophagitis; Z79.82 Long term (current) use of aspirin; Z79.899 Other long term (current) drug therapy; Z13.31 Encounter for screening for depression; Z13.39 Encounter for screening examination for other mental health and behavioral disorders | CPT/HCPCS: 96127; 99202 ==

== ENCOUNTER 2025-05-12 06:00 | Outpatient (REF) | payer OTHER, SELFPAY ==
[2025-05-12 07:30] LABS: Hematocrit 42.6 % (42.0-52.0); Hemoglobin 14.5 g/dl (14.0-18.0); Mean Corpuscular HGB Conc 34.0 g/dl (31.0-36.0); Mean Corpuscular Hemoglobin 34.1 pg (27.0-33.0); Mean Corpuscular Volume 100.2 fL (80.0-98.0); NRBC Abs Auto 0.000 X10*3/uL (0.0-0.012); NRBC Pct Auto 0.0 /100WBC (0.0-0.2); Platelet Count 180 X10*3/uL (160-400); Red Blood Count 4.25 X10*6/uL (4.60-5.80); White Blood Count 7.9 X10*3/uL (4.8-10.8)
[2025-05-12 08:25] LABS: Alanine Aminotransferase 34 U/L (0-40); Albumin Level 4.1 g/dL (3.5-5.0); Alkaline Phosphatase 76 U/L (39-117); Anion Gap 12 (12-20); Aspartate Amino Transferase 36 U/L (5-37); Blood Urea Nitrogen 21 mg/dL (9-16); Calcium 8.6 mg/dL (8.4-10.2); Carbon Dioxide 25 mmol/L (22-29); Chloride 109 mmol/L (96-108); Cholesterol 142 mg/dL (<200); Estimated Glomerular Filt Rate > 60; HDL Cholesterol 60 mg/dL (>40); Potassium 3.7 mmol/L (3.3-5.1); Sodium 142 mmol/L (135-145); Total Protein 6.8 g/dL (6.5-8.0); Triglycerides 57 mg/dL (<150)
[2025-05-12 08:30] LABS: HBS Num1 0.24 mIU/mL (0-7.99); HBc Num1 0.08 S/CO (0.00-0.79); HIV Num 1 0.05 S/CO (0.00-0.99); ~HepC Num1 0.10 S/CO (0.00-0.79); ~Hepatitis B Surface Antibody NONREACTIVE (Nonreactive); ~Hepatitis C Antibody Nonreactive (Nonreactive)
[2025-05-12 08:31] LABS: HBsAGNum1 0.28 S/CO (0.00-0.99); Hepatitis B Surface Antigen Negative (Negative)
[2025-05-12 08:34] LABS: PSA,Total (Free>4and<10) 0.62 ng/mL (0.00-4.00)
[2025-05-12 08:46] LABS: Folate 6.7 ng/mL (> or = 4.0); Vitamin B12 358 pg/mL (200-900)
== END 2025-05-12 06:01 | disposition home or self-care (01) ==
LOC: HO.LAB 06:00
PROVIDERS: PCP Internal Medicine; Visit Provider Internal Medicine
DX: Z00.00 Encounter for general adult medical examination without abnormal findings (principal); Z11.4 Encounter for screening for human immunodeficiency virus [HIV]; Z11.59 Encounter for screening for other viral diseases; D75.89 Other specified diseases of blood and blood-forming organs; M06.9 Rheumatoid arthritis, unspecified; I63.9 Cerebral infarction, unspecified
CPT/HCPCS: 36415; 80053; 80061; 82607; 82746; 83036; 84153; 84443; 85027; 86200; 86431; 86704; 86706; 86803; 87340; 87389